=== PATIENT | male | born 1995 | race Two or more races ===

== ENCOUNTER 2018-11-27 12:02 | Inpatient (IN) | payer MEDICAID ==
[~2018-11-27] VITALS: Ht 165.1 cm; Wt 82.1 kg
[2018-11-27] MEDS ORDERED: HALOPERIDOL 5 MG TABLET PO PRN (14:30)
[2018-11-27] MEDS ORDERED: PNEUMOCOCCAL VACCINE POLYVALENT 0.5 ML VIAL [PPSV23] IM ONE (14:45)
[2018-11-27 16:03] VITALS: BP 121/71
[2018-11-27] MEDS ORDERED: CloNIDine HCL 0.1 MG TABLET PO PRN (16:45)
[2018-11-27] MEDS ORDERED: ONDANSETRON HCL 4 MG TABLET PO PRN (16:45)
[2018-11-27] MEDS ORDERED: MAGNESIUM HYDROXIDE SUSPENSION 30 ML UDCUP PO PRN (16:45)
[2018-11-27] MEDS ORDERED: DOCUSATE SODIUM 100 MG CAPSULE PO PRN (16:45)
[2018-11-27] MEDS ORDERED: IBUPROFEN 400 MG TABLET PO PRN (16:45)
[2018-11-27] MEDS ORDERED: GuaiFENesin/D-METHORPHAN [SUGAR-FREE] 200-20MG/10 ML SYRUP UDCUP PO PRN (16:45)
[2018-11-27] MEDS ORDERED: ACETAMINOPHEN 325 MG TABLET PO PRN (16:45)
[2018-11-27] MEDS ORDERED: LOPERAMIDE HCL 2 MG CAPSULE PO PRN (16:45)
[2018-11-27] MEDS ORDERED: NICOTINE 14 MG/24 HOUR PATCH TD PRN (16:45)
[2018-11-27] MEDS ORDERED: ALBUTEROL SULFATE HFA 90 MCG/PUFF 8 GM INHALER IH PRN (16:45)
[2018-11-27] MEDS ORDERED: PETROLATUM,WHITE 28 GM JELLY TP PRN (16:45)
[2018-11-27] MEDS ORDERED: MAG HYDROX/AL HYDROX/SIMETH ES 30 ML SUSPENSION UDCUP PO PRN (16:45)
[2018-11-28 06:41] VITALS: BP 110/62
[2018-11-28 07:24] LABS: BASOPHILS % (AUTO) 0.3 % (0.0-2.0); EOSINOPHILS % (AUTO) 2.4 % (1.0-6.0); HEMATOCRIT 48.1 % (41-53); HEMOGLOBIN 15.9 g/dL (13.5-17.5); LYMPHOCYTES # (AUTO) 1.5 K/uL (1.0-4.8); LYMPHOCYTES % (AUTO) 21.8 % (22.0-44.0); MEAN CORPUSCULAR HEMOGLOBIN 31.2 pg (26.0-34.0); MEAN CORPUSCULAR VOLUME 94 fL (80-100); MONOCYTES # (AUTO) 0.9 K/uL (0.1-1.0); MONOCYTES % (AUTO) 12.5 % (2.0-9.0); NEUTROPHILS # (AUTO) 4.3 K/uL (1.8-7.7); PLATELET COUNT (AUTO) 231 K/uL (150-450); RED CELL DISTRIBUTION WIDTH 13.1 % (11.5-14.5)
[2018-11-28 07:45] LABS: ALANINE AMINOTRANSFERASE 14 U/L (12-78); ALBUMIN 4.1 g/dL (3.4-5.0); ALKALINE PHOSPHATASE 99 U/L (46-116); ANION GAP 6 mmol/L (8-16); ASPARTATE AMINOTRANSFERASE 18 U/L (15-37); BILIRUBIN,TOTAL 0.5 mg/dL (0.1-1.0); CALCIUM, TOTAL 9.1 mg/dL (8.8-10.5); CARBON DIOXIDE 28 mmol/L (22-29); CHLORIDE 103 mmol/L (98-107); CHOL/HDL RATIO 4.2 (4.2-7.3); CHOLESTEROL 169 mg/dL (131-200); CREATININE 0.98 mg/dL (0.60-1.30); GLOMERULAR FILTR. RATE CALC > 60 mL/min (>60); GLUCOSE,RANDOM 88 mg/dL (70-110); HDL CHOLESTEROL 40 mg/dL (40-60); LDL CHOL (CALC.) 107 mg/dL (0-130); SODIUM SERUM 137 mmol/L (136-145); THYROID STIMULATING HORMONE 2.61 uIU/mL (0.36-3.74); TOTAL PROTEIN, SERUM 7.4 g/dL (6.4-8.2); TRIGLYCERIDES 109 mg/dL (15-150); UREA NITROGEN, BLOOD 9 mg/dL (7-18)
[2018-11-28 08:15] VITALS: BP 122/69
[2018-11-28] MEDS: LORazepam 2 MG TABLET PO PRN ×2 (08:35→16:45)
[2018-11-28] MEDS ORDERED: GuaiFENesin/D-METHORPHAN [SUGAR-FREE] 200-20MG/10 ML SYRUP UDCUP PO PRN (14:45)
[2018-11-28] MEDS ORDERED: PROMETHAZINE HCL 25 MG TABLET PO PRN (14:45)
[2018-11-28] MEDS ORDERED: TUBERCULIN, PURIFIED PROTEIN DERIVATIVE 5 TU/0.1 ML SYRINGE ID ONE (14:45)
[2018-11-28 16:34] VITALS: BP 128/72
[2018-11-28] MEDS: HydrOXYzine PAMOATE 50 MG CAPSULE PO PRN (16:45)
[2018-11-28] MEDS: THIAMINE HCL 100 MG TABLET PO SCH (16:45)
[2018-11-28] MEDS: OLANZapine 5 MG RAPDIS TABLET PO SCH (20:18)
[2018-11-28] MEDS: ZOLPIDEM TARTRATE 10 MG TABLET PO PRN (20:18)
[2018-11-28] MEDS: DIVALPROEX SODIUM 500 MG ER TABLET PO SCH (20:18)
[2018-11-29 03:10] VITALS: BP 123/80
[2018-11-29 09:00] VITALS: BP 120/72
[2018-11-29] MEDS: THIAMINE HCL 100 MG TABLET PO SCH ×2 (09:03→16:49)
[2018-11-29] MEDS: FOLIC ACID 1 MG TABLET PO SCH (09:27)
[2018-11-29] MEDS: MULTIVITAMINS WITH MINERALS, THERAPEUTIC TABLET PO SCH (09:27)
[2018-11-29] MEDS: HydrOXYzine PAMOATE 50 MG CAPSULE PO PRN (16:49)
[2018-11-29 16:54] VITALS: BP 105/61
[2018-11-29] MEDS: OLANZapine 5 MG RAPDIS TABLET PO SCH (20:11)
[2018-11-29] MEDS: DIVALPROEX SODIUM 500 MG ER TABLET PO SCH (20:11)
[2018-11-29] MEDS: LORazepam 2 MG TABLET PO PRN (20:11)
[2018-11-30 08:36] VITALS: BP 109/69
[2018-11-30] MEDS: THIAMINE HCL 100 MG TABLET PO SCH ×2 (09:03→16:55)
[2018-11-30] MEDS: MULTIVITAMINS WITH MINERALS, THERAPEUTIC TABLET PO SCH (09:04)
[2018-11-30] MEDS: FOLIC ACID 1 MG TABLET PO SCH (09:04)
[2018-11-30 16:00] VITALS: BP 118/85
[2018-11-30] MEDS: LORazepam 2 MG TABLET PO PRN (16:55)
[2018-11-30] MEDS: ZOLPIDEM TARTRATE 10 MG TABLET PO PRN (21:33)
[2018-11-30] MEDS: OLANZapine 5 MG RAPDIS TABLET PO SCH (21:33)
[2018-11-30] MEDS: DIVALPROEX SODIUM 500 MG ER TABLET PO SCH (21:33)
[2018-12-01 04:36] VITALS: BP 130/69
[2018-12-01 08:40] VITALS: BP 129/64
[2018-12-01] MEDS: THIAMINE HCL 100 MG TABLET PO SCH (10:06)
[2018-12-01] MEDS: FOLIC ACID 1 MG TABLET PO SCH (10:07)
[2018-12-01] MEDS: MULTIVITAMINS WITH MINERALS, THERAPEUTIC TABLET PO SCH (10:07)
[2018-12-01] MEDS ORDERED: DIVA500T52 PO (13:46)
[2018-12-01] MEDS ORDERED: OLAN5TAB40 PO (13:46)
== END 2018-12-01 16:20 | disposition home or self-care (01) | DRG 750 ==
LOC: B3A 14:34
PROVIDERS: ADMIT Psychiatry & Neurology Psychiatry; ATTEND Psychiatry & Neurology Psychiatry
PROC: 3E0234Z Introduction of Serum, Toxoid and Vaccine into Muscle, Percutaneous Approach (ICD-10-PCS; principal; 2018-11-27)
DX: F25.0 Schizoaffective disorder, bipolar type (principal); F70 Mild intellectual disabilities; R45.851 Suicidal ideations; Z91.19 Patient's noncompliance with other medical treatment and regimen; R10.13 Epigastric pain; F41.9 Anxiety disorder, unspecified; J45.909 Unspecified asthma, uncomplicated; Z65.3 Problems related to other legal circumstances; Z23 Encounter for immunization
CPT/HCPCS: 83036; 84443; 90732